=== PATIENT | male | born 1930 | race Hispanic/Latino ===

== ENCOUNTER → 2019-07-24 | Outpatient (CLI) | payer OTHER ==
--- NOTE | 2019-07-24 10:30 | NUR ---
MBSS COMPLETED. -S/S OF ASPIRATION. RECOMMEND PUREED, THIN LIQUIDS; PILLS CRUSHED WITH APPLESAUCE. RECOMMENDATIONS REVIEWED WITH CAREGIVER AND . SALES RECRUITING COORDINATOR EDUCATED AND CAREGIVER ON LEVEL OF PUREED USING APPLESAUCE AN EXAMPLE OF THE TEXTURES TO USE. A WRITTEN HANDOUT WITH RECOMMENDATIONS PROVIDED. ALL QUESTIONS ANSWERED AT THIS TIME. RE-EVALUATION IS RECOMMENDED IF Pt'S CURRENT STATUS CHANGES. Addendum: 07/24/19 at 1241 by PRICILA JULIO, [facility] Amended: Links added.
== END | disposition home or self-care (01) ==
LOC: RAH 09:43
PROVIDERS: ATTEND Internal Medicine Gastroenterology
DX: R13.10 Dysphagia, unspecified (principal); R63.3 Feeding difficulties
CPT/HCPCS: 74230; 92611